=== PATIENT | male | born 1940 | race Caucasian/White ===

== ENCOUNTER 2017-05-01 12:45 | Inpatient (IN) | payer OTHER ==
[2017-04-25 11:26] LABS: BASOPHILS 1.1 %; BASOPHILS ABSOLUTE 0.11 10/3/uL (0.0-0.16); EOSINOPHILS 2.4 %; EOSINOPHILS ABSOLUTE 0.24 10/3/uL (0.0-0.53); HEMATOCRIT 46.8 % (40.0-51.0); HEMOGLOBIN 15.1 g/dL (13.6-17.8); IMMATURE GRANULOCYTES 0.5 %; IMMATURE GRANULOCYTES ABSOLUTE 0.05 10/3/uL (0.0-0.11); LYMPHOCYTES 14.2 %; LYMPHOCYTES ABSOLUTE 1.44 10/3/uL (0.67-4.30); MANUAL DIFF NO %; MEAN CORPUS HGB CONC 32.3 g/dL (32.0-36.0); MEAN CORPUSCULAR HEMOGLOB 28.1 pg (26.0-34.0); MEAN CORPUSCULAR VOLUME 87.2 fL (80-100); MEAN PLATELET VOLUME 9.7 fL (9.2-13.0); MONOCYTES 4.6 %; MONOCYTES ABSOLUTE 0.47 10/3/uL (0.21-1.20); NEUTROPHILS 77.2 %; PLATELET COUNT 356 10/3/uL (150-400); RBC DISTRIBUTION WIDTH 15.4 % (12.0-16.0); RED CELL COUNT 5.37 10/6/uL (4.7-6.1); WHITE BLOOD CELLS 10.1 10/3/uL (4.5-10.5)
[2017-04-25 11:42] LABS: BUN (BLOOD UREA NITROGEN) 16 MG/DL (6-23); CHLORIDE, SERUM 104 MMOL/L (96-112); CO2 (CARBON DIOXIDE) 26 MMOL/L (24-34); CREATININE 1.32 MG/DL (0.70-1.30); GFR AFRICAN AMERICAN 61 ML/MIN (>=60); GFR NON AFRICAN AMERICAN 53 ML/MIN (>=60); GLUCOSE, SERUM 123 MG/DL (60-99); POTASSIUM, SERUM 4.4 MMOL/L (3.5-5.3); SODIUM, SERUM 140 MMOL/L (135-148)
--- NOTE | ~2017-05-01 | OP ---
Record Of Operation [facility] [address] [place]. [address] NAME: ROYER SELLERS : 44 STATUS : ADM IN PAT#: [id number] AGE: 76 ADM/REG DATE : 05/01/17 MR#: [id number] REPORT SERV DATE: 05/01/17 DICTATED BY: DARIUSZ JAMA III DATE: 05/01/17 REPORT STATUS : Draft TRANSCRIBED BY: MODL DATE: 05/01/17 DATE OF PROCEDURE: 05/01/2017 PROCEDURE: Cystoscopy, urethral dilatation, TURBT of 3 cm bladder tumor, and right retrograde. PREOPERATIVE DIAGNOSIS: Bladder tumor. POSTOPERATIVE DIAGNOSIS: Bladder tumor plus urethral stricture. DESCRIPTION OF PROCEDURE: Following induction of adequate general anesthesia, the patient was placed in the dorsal lithotomy position, prepped and draped in a sterile fashion. The urethra was entered and noted to be normal until the bulbous urethra was encountered and there was a small more stricture. Attempted passing a sound and it would not go easily into the stricture. I then passed a Sensor wire under direct vision into the bladder and dilated over a Parker sounds up to 26-Palestinian. Then I was able to put the 24-Palestinian resectoscope in. The prostate was large with a long fossa. The bladder was heavily trabeculated with numerous cellules. I examined the bladder both with the 30 degree lens and no other tumors were noted. I could not immediately locate the right ureteral orifice. The resectoscope was inserted. The tumor was resected down to muscle and some separate shavings of muscle were taken. The orifice was identified. There was no tumor in the actual orifice or within several mm of it. Retrograde showed a slightly narrowed distal ureter and normal but tortuous ureter proximally with no filling defects. We could not see the upper tract clearly but there were no gross abnormalities. Next the bladder was inspected with both 30 and 70 degree lens using the cystoscope which when had been used for the retrograde, no other tumors were noted. The 22-Palestinian catheter was placed in the bladder with approximately 25 mL and 10 mL balloon. I had irrigated clear. There was some bleeding from the meatus. The patient tolerated the procedure well. Blood loss was nil. OB/MODL Dariusz Jama III, M.D. / [id number] CC: Conrado Menezes III
[~2017-05-01 12:45] MED LIST: APRES25 PO; ASAB PO; CARDCD120 PO; CAT1 PO; COZAAR100 MG PO; IND25 PO; LAC-HYDRIN TOP; LIPITOR40 PO; NEUR300 PO; PROAIRRESP INH; SYMBICORT 160/41 INH INH; Spiriva Handihaler; TEMOVATE CREAM30 GM TOP; UROXATRAL PO; VIAGRA100 MG PO; Z100 PO; ZANTAC150 MG PO; [UNRECOGNIZED DRUG - OTHER]
[2017-05-03] MEDS ORDERED: DITROXL5 PO (13:55)
[2017-05-03] MEDS ORDERED: AZO-STANDARD95 MG PO (13:58)
[2017-05-03] MEDS ORDERED: MAGNESIUM CITRATE PO (13:59)
[2017-05-03] MEDS ORDERED: MIRALAX POWDER1 PKT PO (14:00)
== END 2017-05-03 16:33 | disposition home or self-care (01) | DRG 669 ==
LOC: SDC 12:45 → 4SO 18:29
PROVIDERS: Urology
PROC: BT1D1ZZ Fluoroscopy of Right Kidney, Ureter and Bladder using Low Osmolar Contrast (ICD-10-PCS; 2017-05-01)
PROC: 0TBB8ZZ Excision of Bladder, Via Natural or Artificial Opening Endoscopic (ICD-10-PCS; principal; 2017-05-01 14:30)
PROC: 0T7D8ZZ Dilation of Urethra, Via Natural or Artificial Opening Endoscopic (ICD-10-PCS; 2017-05-01 14:30)
DX: D41.4 Neoplasm of uncertain behavior of bladder (principal); Z68.41 Body mass index [BMI] 40.0-44.9, adult; J44.9 Chronic obstructive pulmonary disease, unspecified; G62.9 Polyneuropathy, unspecified; E66.01 Morbid (severe) obesity due to excess calories; M10.9 Gout, unspecified; E78.5 Hyperlipidemia, unspecified; I10 Essential (primary) hypertension; K21.9 Gastro-esophageal reflux disease without esophagitis; Z87.891 Personal history of nicotine dependence; N35.8 Other urethral stricture
CPT/HCPCS: 71020; 74420; 80048; 85025; 88307; 93005; 94640; A9270-GY; J0330; J2270; J2370; J2405; J3010; Q9967